=== PATIENT | male | born 1965 | race Caucasian/White ===

== ENCOUNTER 2021-03-07 15:18 | Emergency (ER) | payer OTHER ==
[~2021-03-07] VITALS: Ht 182.9 cm; Wt 104.3 kg
[~2021-03-07 15:18] MED LIST: DOXYCYCLINE 10100 M1 PO; LUNESTA2 MG; MULTIVITAMINS PO; NORCO 5-325 TA1 EACH PO; PRILOSEC 20 MG20 MG PO
[2021-03-07 16:50] VITALS: BP 130/92
== END 2021-03-07 16:50 | disposition home or self-care (01) ==
LOC: ER 15:18
DX: S61.512A Laceration without foreign body of left wrist, initial encounter (principal); E78.5 Hyperlipidemia, unspecified; Z98.84 Bariatric surgery status; Z88.6 Allergy status to analgesic agent; X58.XXXA Exposure to other specified factors, initial encounter; Y93.89 Activity, other specified; Y92.89 Other specified places as the place of occurrence of the external cause; Y99.8 Other external cause status